=== PATIENT | female | born 1980 | race Caucasian/White ===

== ENCOUNTER 2020-03-06 11:15 | Emergency (ER) | payer OTHER ==
[~2020-03-06] VITALS: Ht 162.6 cm; Wt 81.7 kg
[~2020-03-06 11:15] MED LIST: PRENATAL VITAM1 EACH PO; TYLENOL325 MG PO
[2020-03-06] MEDS ORDERED: DILTIAZEM ER90 MG PO (11:39)
--- NOTE | 2020-03-07 19:01 | CONS ---
[facility] [address], [place] [address] Signed DATE OF CONSULTATION: 03/06/2020 TIME: 3:00 p.m. PROBLEM: Biliary colic with gallstones. HISTORY OF PRESENT ILLNESS: This 39-year-old white woman, presented to the emergency room, was evaluated thoroughly by Dr. Boggs with severe unrelenting 10/10 epigastric pain. Her evaluation included liver enzymes studies, CBC, and so forth all of them showing reasonably normal studies. A gallbladder ultrasound was performed, which showed several gallstones. In time with observation in the emergency room, the patient's pain and so forth subsided entirely. Ultimately, she was considered to have 0/10 pain. PAST MEDICAL HISTORY: Remarkable for hypertension for which she takes diltiazem. Her primary provider is MEGGAN Villalta. SOCIAL HISTORY: Patient is . She works at [employer], an [employer]. She has 3 children. The oldest is 20. The youngest is 6. REVIEW OF SYSTEMS: She denies any shortness of breath or dysphagia. Has had no blood per rectum or hematemesis. PHYSICAL EXAMINATION: GENERAL: Pleasant white woman, somewhat overweight, but alert, healthy, and oriented well. NECK: Trachea is midline. CHEST: Shows normal respiratory excursion. Pulses regular. ABDOMEN: Obese. There is a supraumbilical piercing noted. Abdominal palpation including deep and superficial palpation show no tenderness. No mass. No ascites. EXTREMITIES: Show no clubbing, cyanosis, or edema. IMAGING: Gallbladder ultrasound results were reviewed showing a normal liver, gallbladder, showing a so-called yeeo-pdrm-tejpvb sign consistent with the gallbladder filled with stones. The wall is 3 mm thick. There is no pericholecystic fluid. She had a negative Castanon sign. Electronically Signed By: EDELMIRA GRAY MD 03/07/20 1901 PATIENT NAME: RUPA GALVIN CONSULTATION DATE OF : 80 REPORT #: [id number] PHYSICIAN: EDELMIRA GRAY MD PCP: ELHAM KELLY PAC REPORT IS CONFIDENTIAL AND NOT TO BE RELEASED WITHOUT AUTHORIZATION [facility] [address], [place] [address] Signed ASSESSMENT: Discussed with her in detail the issue of biliary colic related to gallstones. She seems to have had complete clearance of her symptoms. Options could include direct admission to the hospital, anticipating cholecystectomy versus outpatient elective cholecystectomy. She prefers the latter. PLAN: I have advised her to avoid fatty food in the meantime of her plan for operation. She has had a total of 3 episodes of biliary colic this being the worst. She will call my office and we will schedule for consideration of outpatient cholecystectomy with the time frame to schedule. If she does have severe symptoms, she will call. I have given her my cell phone number and of course if unavailable, ER is also available to see her promptly. MD OLGA Morales/PATRICIA /[id number] cc: MD Elham Amador PA Copies: SWEETIE BOGGS MD ~ Electronically Signed By: EDELMIRA GRAY MD 03/07/20 1901 PATIENT NAME: RUPA GALVIN CONSULTATION DATE OF : 80 REPORT #: [id number] PHYSICIAN: EDELMIRA GRAY MD PCP: ELHAM KELLY PAC REPORT IS CONFIDENTIAL AND NOT TO BE RELEASED WITHOUT AUTHORIZATION
== END 2020-03-06 15:50 | disposition home or self-care (01) ==
LOC: ED 11:15
DX: K80.50 Calculus of bile duct without cholangitis or cholecystitis without obstruction (principal); I10 Essential (primary) hypertension; Z87.891 Personal history of nicotine dependence; Z79.899 Other long term (current) drug therapy
CPT/HCPCS: 76705; 80053; 83690; 84484; 85025; 99284-25

== ENCOUNTER 2020-03-13 06:27 | Day surgery (SDC) | payer OTHER ==
[~2020-03-13] VITALS: Ht 162.6 cm; Wt 79.4 kg
[~2020-03-13 06:27] MED LIST changes: +DILTIAZEM ER90 MG PO
[2020-03-13] MEDS ORDERED: IBUPROFEN600 MG PO (09:02)
[2020-03-13] MEDS ORDERED: ACETAMINOPHEN500 MG PO (09:02)
[2020-03-13] MEDS ORDERED: OXYCODON-ACETA1 EAC2 PO (09:02)
--- NOTE | 2020-03-13 09:03 | NUR ---
03/13/20 0903 Abby Downing 0846 PT ARRIVED IN PACU NON RESPONSIVE TO VERBAL STIMULI. CHIN LIFT HELD FOR PERIODS OF APNEA. 0850 PT REACTIVE AND TALKING TO STAFF. 0855 GLASSES RETURNED TO PT. OXYGEN REMOVED. SATS 96% ON RA. 0900 TAKING SMALL SIPS OF WATER FOR DRY MOUTH. NO C/O'S PAIN.
--- NOTE | 2020-03-13 10:28 | NUR ---
DISCHARGE INSTRUCTIONS GIVEN IN PRESENCE OF PATIENT AND HER SPOUSE. BOTH VERBALIZE UNDERSTANDING.
--- NOTE | 2020-03-13 10:29 | NUR ---
LE 0920: ICED WATER AND APPLESAUCE GIVEN. CALL LIGHT WITHIN REACH. SPOUSE IS AT THE BEDSIDE.
--- NOTE | 2020-03-13 11:00 | NUR ---
ZOFRAN 4 MG ODT DISPENSE 10 WITH NO REFILLS CALLED IN TO [facility] [place].
--- NOTE | 2020-03-13 11:15 | NUR ---
LE 1045: PATIENT IS DRESSING SELF IN PRESENCE OF HER SPOUSE. SHE TRANSFERS TO THE WHEELCHAIR AND THEN TO PERSONAL VEHICLE AND TOLERATES THAT WELL.
--- NOTE | 2020-03-13 13:01 | NUR ---
PT ALERT, ORIENTED AND SUPPORTED BY HER SPOUSE JHONY. PT SEEMS IN FORMED AND PREPARED-ALL QUESTIONS ASKED ANSWERED. PT DECLINED PRAYER, WILL FOLLOW
--- NOTE | 2020-03-14 11:46 | OR ---
[facility] [address] [place], [place] [address] Signed DATE OF OPERATION: 03/13/2020 SURGEON: Edelmira Gray MD PREOPERATIVE DIAGNOSIS: Symptomatic gallstones. POSTOPERATIVE DIAGNOSIS: Chronic cholecystitis with multiple gallstones. PROCEDURE: 1. Laparoscopic cholecystectomy with intraoperative cholangiogram. 2. Surgeon-directed fluoroscopy. ANESTHESIA: General endotracheal; Natalia Aaron CRNA, and local 20 mL of 0.25% Marcaine with epinephrine. INDICATION: This 39-year-old white woman presented to the emergency room on March 06, 2020 where she was evaluated by Dr. Boggs with very severe epigastric and right subcostal pain. Evaluation including ultrasound showed multiple gallstones packed within the gallbladder. Within a short amount of time in the emergency room, her pain completely resolved. I evaluated her at that time and she was offered admission to the hospital for consideration of cholecystectomy versus outpatient elective cholecystectomy, the latter which she preferred. She is admitted at this time to undergo cholecystectomy for symptomatic gallstones. She understands the risks of bleeding, infection, bile duct injury, need for open procedure, failure to cure her symptoms and other unforeseen complications and wished to proceed. FINDINGS: The gallbladder was chronically inflamed. There were dense adhesions of omentum to the undersurface of the gallbladder. Cholecystectomy was performed without problem showing multiple gallstones entirely filling the gallbladder as previously predicted. The liver itself was normal. Cholangiogram was normal, though there was slight aberrancy of the cystic duct. It was long and entered into the low aspect of the common bile duct on the left side. There were no other findings of concern. DESCRIPTION OF PROCEDURE: The patient was brought to the operating room and given a general endotracheal Electronically Signed By: EDELMIRA GRAY MD 03/14/20 1146 PATIENT NAME: RUPA GALVIN OPERATIVE REPORT DATE OF : 80 REPORT #: [id number] PHYSICIAN: EDELMIRA GRAY MD PCP: ELHAM KELLY PAC REPORT IS CONFIDENTIAL AND NOT TO BE RELEASED WITHOUT AUTHORIZATION [facility] [address] [place], [place] [address] Signed anesthetic. Preoperative antibiotic Ancef was given. Sequential compression device stockings were used and heparin subcutaneously administered. The abdomen was prepared with a chlorhexidine solution and draped sterilely. An infraumbilical incision was made and using an open Flor cannula technique pneumoperitoneum was achieved to a level of 14 mmHg of carbon dioxide gas. Intraabdominal inspection showed no sign of ascites or carcinomatosis. Gallbladder appeared to be chronically inflamed. Adhesions of the omentum were known to it. The liver was entirely normal. Three additional trocars were placed in usual configuration in the subxiphoid, right midclavicular, and right anterior axillary line. The gallbladder was elevated cephalad. Dense omental adhesions were taken down with blunt and electrocautery dissection allowing for further elevation of the gallbladder. Using blunt and electrocautery dissection, the triangle of Calot was dissected free. Ultimately, the cystic duct and cystic arterial branches were identified separately. Clips were applied on the gallbladder cystic duct junction and a transverse choledochotomy made in the cystic duct. Using an Nascimento type cholangiocatheter, intraoperative cholangiography was undertaken. Free flow of contrast was noted in the biliary tree. The cystic duct appeared rather long and entered aberrantly into the left side of the common bile duct. There was no sign of filling defects or other abnormality in the biliary tree. The cystic duct was triply clipped and divided and the gallbladder dissected free in a retrograde fashion using electrocautery. The clips were applied to cystic arterial branches as necessary. The gallbladder was extracted through the infraumbilical port site without problem, opened on the back table and found to have innumerable small yellow gallstones. There was no sign of neoplasm. Irrigation was undertaken in the subhepatic space. There was no sign of bile leak, bleeding or other problems. The trocars were removed under direct visualization showing no bleeding. The infraumbilical fascial incision was reapproximated with interrupted 0 Vicryl suture. A 20 mL of 0.25% Marcaine with epinephrine was injected locally. The skin was closed with interrupted 3-0 Vicryl. Steri-Strips were applied. The patient was ultimately extubated and transferred to the recovery room in good condition having suffered no complications. Sponge, needle, and instrument counts reported as correct x3. Edelmira Gray MD /MODL /[id number] Electronically Signed By: EDELMIRA GRAY MD 03/14/20 1146 PATIENT NAME: RUPA GALVIN OPERATIVE REPORT DATE OF : 80 REPORT #: [id number] PHYSICIAN: EDELMIRA GRAY MD PCP: ELHAM KELLY PAC REPORT IS CONFIDENTIAL AND NOT TO BE RELEASED WITHOUT AUTHORIZATION [address], [place] [address] Signed cc: MD Elham Amador PA Copies: SWEETIE BOGGS MD ~ Electronically Signed By: EDELMIRA GRAY MD 03/14/20 1146 PATIENT NAME: GLENISRUPA IRENE OPERATIVE REPORT DATE OF : 80 REPORT #: [id number] PHYSICIAN: EDELMIRA GRAY MD PCP: ELHAM KELLY PAC REPORT IS CONFIDENTIAL AND NOT TO BE RELEASED WITHOUT AUTHORIZATION
--- NOTE | 2020-03-14 12:44 | PATH ---
[facility] [address] [place], [place] [address] Signed SPECIMEN(S): A GALLBLADDER WITH STONES SPECIMEN SOURCE: A. GALLBLADDER WITH STONES CLINICAL HISTORY: Biliary colic, gallstones. FINAL PATHOLOGIC DIAGNOSIS: Gallbladder, cholecystectomy: - Chronic cholecystitis. - Cholelithiasis. NAL:cml:C2NR MICROSCOPIC EXAMINATION: Histologic sections of all submitted blocks are examined by light microscopy. These findings, together with the gross examination, support the pathologic diagnosis. GROSS DESCRIPTION: The specimen, labeled "EM," and designated on the requisition "gallbladder with stones," is received in formalin and consists of Specimen: Previously opened gallbladder. Dimensions: 9.3 x 3.6 x 0.4 cm. Serosa: Yellow-eaton smooth. Cystic Duct: Cannot be determined. Calculi: Numerous yellow-eaton multifaceted calculi (3.5 x 3.0 x 1.1 cm in aggregate). Mucosa: Brown-eaton and velvety. Wall thickness: 0.4 cm. Lymph node: No pericystic lymph nodes are grossly identified. Additional: None. Graduate Engineer sections are submitted in cassette (A1). AC (under the direct supervision of a pathologist) The Gross Description was prepared using a voice recognition system. The report was reviewed for accuracy; however, sound-alike word errors, addition and/or deletions may occur. If there is any question about this report, please contact Client Services. PERFORMING LABORATORY: The technical component was performed by [employer], Roddy An, PATIENT NAME: RUPA GALVIN PATHOLOGY DATE OF : 80 REPORT #: [id number] PHYSICIAN: ONEL JETT PCP: ELHAM KELLY PAC REPORT IS CONFIDENTIAL AND NOT TO BE RELEASED WITHOUT AUTHORIZATION [facility] [address] [place], [place] [address] [place] [address] (Sanding Machine Operator Or Tender: Zuly Teague MD; CLIA# [id number]). Professional interpretation was performed by [facility], [address] [address] (CLIA# [id number]). Diagnostician: Roseann Bunn MD Pathologist Electronically Signed 03/14/2020 Copies: ~ PATIENT NAME: RUPA GALVIN PATHOLOGY DATE OF : 80 REPORT #: [id number] PHYSICIAN: ONLE JETT PCP: ELHAM KELLY PAC REPORT IS CONFIDENTIAL AND NOT TO BE RELEASED WITHOUT AUTHORIZATION
== END 2020-03-13 10:45 | disposition home or self-care (01) ==
LOC: DS 06:27
PROVIDERS: Surgery
PROC: BF13YZZ Fluoroscopy of Gallbladder and Bile Ducts using Other Contrast (ICD-10-PCS; 2020-03-13)
PROC: 0FT44ZZ Resection of Gallbladder, Percutaneous Endoscopic Approach (ICD-10-PCS; principal; 2020-03-13 06:45)
DX: K80.10 Calculus of gallbladder with chronic cholecystitis without obstruction (principal); K66.0 Peritoneal adhesions (postprocedural) (postinfection); I10 Essential (primary) hypertension; Z79.899 Other long term (current) drug therapy
CPT/HCPCS: 00790; 74300; J0330; J0690; J1100; J1644; J1885; J2001; J2250; J2405; J2704; J3475; J7121; Q9967